=== PATIENT | male | born 1970 | race American Indian/Alaskan Native ===

== ENCOUNTER 2019-10-03 15:11 | Emergency (ER) | payer SELFPAY ==
[2019-10-03 16:39] VITALS: BP 148/85
--- NOTE | 2019-10-03 16:40 | Emergency Department Report ---
Blank Doc - Documentation Documentation: 48-year-old male that presents with dizziness and fatigue. This initial assessment/diagnostic orders/clinical plan/treatment(s) is/are subject to change based on patient's health status, clinical progression and re- assessment by fellow clinical providers in the ED. Further treatment and workup at subsequent clinical providers discretion. Patient/guardians urged not to elope from the ED as their condition may be serious if not clinically assessed and managed. Initial orders include: 1- Patient sent to [facility] for further evaluation and treatment 2- labs 3- UA
[2019-10-03 18:31] LABS: Basophils % (Auto) 0.6 % (0.0-1.8); Eosinophils % (Auto) 0.1 % (0.0-4.3); Hematocrit 48.5 % (35.5-45.6); Hemoglobin 15.8 gm/dl (11.8-15.2); Lymphocytes # (Auto) 2.4 K/mm3 (1.2-5.4); Lymphocytes % (Auto) 41.3 % (13.4-35.0); Mean Corpuscular HGB Conc 33 % (32-34); Mean Corpuscular Volume 87 fl (84-94); Monocytes # (Auto) 0.7 K/mm3 (0.0-0.8); Monocytes % (Auto) 11.8 % (0.0-7.3); Platelet Count 224 K/mm3 (140-440); Red Blood Count 5.59 M/mm3 (3.65-5.03); Red Cell Distribution Width 14.3 % (13.2-15.2)
[2019-10-03 18:51] LABS: Alanine Aminotransferase 18 units/L (7-56); Albumin 4.1 g/dL (3.9-5); BUN/Creatinine Ratio 9; Blood Urea Nitrogen 10 mg/dL (9-20); Calcium 9.1 mg/dL (8.4-10.2); Hemolysis Index 16
[2019-10-03 20:28] LABS: Bilirubin,Urine NEG (Negative); Blood,Urine NEG (Negative); Color,Urine Yellow (Yellow); Mucus,Urine 2+ /HPF
--- NOTE | 2019-10-03 21:09 | Emergency Department Report ---
- General Chief complaint: Dizziness Stated complaint: SICK Time Seen by Provider: 10/03/19 16:39 Source: patient Mode of arrival: Ambulatory Limitations: No Limitations - History of Present Illness Initial comments: 48-year-old obese -Citizen Of [place] Citizen [place] male presents emerged department complaining of having sensations of fatigue and lack energy whenever it is time for him to go into work at the [employer]. States that the symptoms are isolated to that location he feels it is something to do with the cold temperature and side. He reports no sinus congestion no headaches no coughing no wheezing no chest pain no palpitations no nausea no vomiting no hemoptysis no hematemesis no no diarrhea no abdominal pain no rashes no recent travel no loss of consciousness no prior history of similar. He is also concerned that his age and his current physical condition may also be a culprit. MD Complaint: generalized weakness, lack of energy -: Gradual, days(s) (3) Severity: mild Consistency: constant Improves with: none Worsens with: none Context: new medication Associated Symptoms: denies: chest pain, confusion, dark stools, diaphoresis, fever/chills, headaches, loss of appetite, nausea/vomiting, rash, shortness of breath, syncope - Related Data Allergies Allergy/AdvReac Type Severity Reaction Status Date / Time No Known Allergies Allergy Unverified 10/03/19 15:31 ED Review of Systems ROS: Stated complaint: SICK Other details as noted in HPI Comment: All other systems reviewed and negative ED Past Medical Hx - Past Medical History Previous Medical History?: No - Surgical History Past Surgical History?: No - Social History Smoking Status: Never Smoker Substance Use Type: None ED Physical Exam - General Limitations: No Limitations General appearance: alert, in no apparent distress - Head Head exam: Present: atraumatic, normocephalic - Eye Eye exam: Present: normal appearance, PERRL, EOMI Pupils: Present: normal accommodation - ENT ENT exam: Present: normal exam, normal orophraynx, mucous membranes moist, TM's normal bilaterally - Neck Neck exam: Present: normal inspection, full ROM. Absent: tenderness - Respiratory Respiratory exam: Present: normal lung sounds bilaterally. Absent: respiratory distress, wheezes, rales, chest wall tenderness, accessory muscle use, decreased breath sounds - Cardiovascular Cardiovascular Exam: Present: regular rate, normal rhythm. Absent: systolic murmur, diastolic murmur, rubs, gallop - GI/Abdominal GI/Abdominal exam: Present: soft, normal bowel sounds - Rectal Rectal exam: Present: deferred - Extremities Exam Extremities exam: Present: normal inspection - Back Exam Back exam: Present: normal inspection, full ROM. Absent: CVA tenderness (R), CVA tenderness (L) - Neurological Exam Neurological exam: Present: alert, oriented X3, CN II-XII intact, normal gait, other (Head impulse test is normal.) - Psychiatric Psychiatric exam: Present: normal affect, normal mood. Absent: flat affect - Skin Skin exam: Present: warm, dry, intact, normal color. Absent: rash, cyanosis, diaphoretic ED Course Vital Signs 10/03/19 16:36 Temperature 98.2 F Pulse Rate 66 Respiratory 16 Rate Blood Pressure 148/85 O2 Sat by Pulse 95 Oximetry ED Medical Decision Making - Lab Data Result diagrams: 10/03/19 18:14 10/03/19 18:14 - Medical Decision Making Based on the history, exam, and findings presentation not consistent with syncope, seizure, stroke, meningitis, symptomatic anemia, increased ICP, ICH. Additionally I have a low suspicion for labyrinthitis, acute otitis media or other infectious process. Prior to discharge the symptoms are controlled the patient is functioning well speaking in full sentences he is able to sit and stand and ambulate with no limitations and is able to utilize his cell phone in the form of texting and talking with video check with with no delay. Advise follow-up with primary care provider within 24 to 48 hours. Critical care attestation.: If time is entered above; I have spent that time in minutes in the direct care of this critically ill patient, excluding procedure time. ED Disposition Clinical Impression: Dizziness Disposition: DC-01 TO HOME OR SELFCARE Is pt being admited?: No Does the pt Need Aspirin: No Condition: Stable Instructions: Dizziness (ED), Lightheadedness (ED), Weakness (ED) Additional Instructions: Recommend follow-up with her primary care provider and get a full evaluation to fully look at the possible causes of your your fatigue at this present time no urgent or emergent causes have been identified. Is recommended you follow-up with your primary care provider within 24 to 48 hours Referrals: PRIMARY MD GEENA [Primary Care Provider] - 24 Hours [facility] [Provider Group] - 3-5 Days
== END 2019-10-03 21:27 | disposition home or self-care (01) ==
LOC: ED 15:11
DX: R42 Dizziness and giddiness (principal)
CPT/HCPCS: 36415; 80053; 81001; 85025